=== PATIENT | male | born 1995 | race Two or more races ===

== ENCOUNTER 2018-01-31 20:59 | Emergency (ER) | payer MEDICAID ==
[~2018-01-31] VITALS: Ht 180.3 cm; Wt 74.8 kg
[2018-01-31 21:11] VITALS: BP 131/82
== END 2018-02-01 00:55 | disposition left against medical advice (07) ==
LOC: ER 20:59
DX: M54.5 Low back pain (principal); Z53.21 Procedure and treatment not carried out due to patient leaving prior to being seen by health care provider
CPT/HCPCS: 72100